=== PATIENT | female | born 1990 | race Caucasian/White ===

== ENCOUNTER 2020-10-09 12:26 | Emergency (ER) | payer OTHER, SELFPAY ==
--- NOTE | ~2020-10-09 | XR_ITS ---
EXAMINATION: CHEST WITH LEFT RIBS AND AP PELVIS WITH LEFT HIP. CLINICAL INFORMATION: Status post fall with left hip pain and bruising. Normal gait. COMPARISON: None TECHNIQUE: Chest and left RIBS 4 views. AP pelvis and 2 views left hip. FINDINGS: AP PELVIS: There is normal symmetry of bilateral hip joints and SI joints. No fracture or soft tissue involvement seen. LEFT HIP: There is no visible acute fracture, dislocation or subluxation seen. There is no bony erosive changes. The soft tissues are normal. CHEST: The lungs are well-expanded and clear. The heart size and pulmonary vascularity is normal. Multiple views left RIBS reveal no visible rib fracture or bony abnormality. The soft tissues are normal. XR/XR ribs LT min 3V w CXR1V IMPRESSION: Unremarkable on AP pelvis and left hips. Unremarkable chest and left rib exam.
--- NOTE | ~2020-10-09 | XR_ITS ---
EXAMINATION: CHEST WITH LEFT RIBS AND AP PELVIS WITH LEFT HIP. CLINICAL INFORMATION: Status post fall with left hip pain and bruising. Normal gait. COMPARISON: None TECHNIQUE: Chest and left RIBS 4 views. AP pelvis and 2 views left hip. FINDINGS: AP PELVIS: There is normal symmetry of bilateral hip joints and SI joints. No fracture or soft tissue involvement seen. LEFT HIP: There is no visible acute fracture, dislocation or subluxation seen. There is no bony erosive changes. The soft tissues are normal. CHEST: The lungs are well-expanded and clear. The heart size and pulmonary vascularity is normal. Multiple views left RIBS reveal no visible rib fracture or bony abnormality. The soft tissues are normal. XR/XR hip LT w PEL1V IMPRESSION: Unremarkable on AP pelvis and left hips. Unremarkable chest and left rib exam.
[2020-10-09 12:30] VITALS: BP 115/67; PULSE 66; RESP 16; TEMP 36.9; O2SAT 99; BMI 25.9
[2020-10-09 12:46] VITALS: BP 115/67; PULSE 66; RESP 16; TEMP 36.9; O2SAT 99
--- NOTE | 2020-10-09 12:48 | PC.NURSE ---
pt states she was drinking alcohol last night, states she drank a lot. she reports left rib pain, states she does not know if she fell. She reports bruise to hip. pain is to left lateral ribs. no bruising noted
--- NOTE | 2020-10-09 13:04 | ED_ITS ---
HPI - Fall General Chief Complaint: Chest Pain Stated Complaint: rib pain Time Seen by Provider: 10/09/20 12:45 Source: patient Mode of arrival: ambulatory Limitations: no limitations History of Present Illness HPI Narrative: 30-year-old female presenting to the ED with complaints of left lower rib cage pain and left hip pain after she fell while drinking last night. She reports she has pain with inspiration. denies head injury or loss of consciousness. She denies any other injury complaints or concerns at this time. complaint: fall Onset (ago): day(s) (Last night) Fall from: standing Place fall occurred: street Loss of consciousness: none Prolonged down time: no Symptoms prior to fall: none Context: tripped/slipped Location of injury: chest Location of injury - extremities: left: lower leg (Hip) Severity: mild Quality: aching Associated symptoms (after fall): other (Only pain to left lower chest wall and left hip no other symptoms after the fall) Related Data Previous Rx's Medication Instructions Recorded cyclobenzaprine 10 mg tablet 10 mg PO Q8H #10 tab 10/09/20 ibuprofen 800 mg tablet 800 mg PO Q8H PRN #14 tab 10/09/20 Allergies Allergy/AdvReac Type Severity Reaction Status Date / Time No Known Allergies Allergy Verified 10/09/20 12:34 Review of Systems Review of Systems: Constitutional : No changes in activity, No lethargy, No recent prior head injury, No agitation, No increased fussiness ENT/Mouth : No Ear Pain, No Nasal discharge/drainage Eyes: No Eye Pain, No Swelling, No Redness, No Foreign Body, No Vision Changes Cardiovascular : No Chest Pain, No SOB Respiratory : No Cough Gastrointestinal : No Nausea, No Vomiting, No abdominal Pain Genitourinary : No Dysuria, No Urinary Frequency, No Urinary Incontinence, No Urgency, No Flank Pain Musculoskeletal : Positive left hip joint pain, positive chest wall/rib cage pain the left lower aspect, No neck stiffness, No back pain/injury Skin : No lacerations Neuro : No unsteady gait, No Paresthesias, No Loss of Consciousness, No altered mental status, No Headache Yes all other systems are reviewed and are negative PMFSH Past Medical History Attestation statement: The following information was validated with the patient. Social History Social History Alcohol intake: current Alcohol intake frequency: other Patient Tobacco Use Status: Current someday Tobacco user Use of substances other than those prescribed or required for medical reasons: Refusing to respond Advance Directives: No Advance Directives Information Provided: Yes Physical Exam Vital Signs: Vital Signs: Last Vital Signs Temp 98.4 F 10/09/20 12:46 Pulse 66 10/09/20 12:46 Resp 16 10/09/20 12:46 BP 115/67 10/09/20 12:46 Pulse Ox 99 10/09/20 12:46 Body Mass Index 25.9 vital signs have been reviewed as normal and appeared to be correct. Blood pressure normal. Heart rate normal. Respiration rate normal. Temperature n ormal. Oxygen saturation normal. Appearance: Alert. Oriented X3. No acute distress. Head: Normal external exam. Normocephalic. Atraumatic. No Bueno signs noted. No raccoon eyes noted Eyes: PERRLA. EOMI. Conjunctiva and sclera normal. Eyelids normal. ENT: Pharynx normal. Uvula midline. Moist mucous membranes. Neck: Normal inspection. Neck supple. FROM. No adenopathy. No meningeal signs. Nontender. No signs of trauma. CVS: Normal heart rate and rhythm. Heart sound normal. Pulses normal throughout. No murmurs/rales/gallops. Respiratory: No respiratory distress. Painless inspiration. Breath sounds normal. No wheezes/rales/rhonchi noted. Chest tenderness palpation to left lower anterior chest wall/rib cage. Not consistent with flail chest. No ecchymosis /abrasion/laceration/fluctuance/induration or signs of infection noted. No accessory muscle usage noted or decreased air movement noted. Abdomen: Soft and nontender. Bowel sounds normal in all 4 quadrants. No distention noted. No organomegaly noted. No visible injury noted. No ecchymosis noted on the abdomen. Back: Full range of motion noted. Nontender. No signs of trauma. rashes/lesion/induration/fluctuance or signs of infection noted. Skin: Skin warm and dry. Normal skin color. Normal skin turgor. No rashes/lesions/lacerations noted. Extremities: Patient with tenderness palpation to left hip joint at the anterior aspect with ecchymosis noted. No ligamentous laxity noted. Patient has full range of motion of the hips and lower extremities. Otherwise all other Extremities exhibit normal range of motion and nontender. Neuro: Oriented X 3. No motor deficit. No sensory deficit. Reflexes normal. Normal steady gait. No focal neuro deficits noted. Vascular: + radial pulses/+ 2 distal pedal pulses/+2 dorsalis pedis b/l. Normal cap refill. No cyanosis noted to upper extremity nails and lower extremity toes nails. Course Course Course Narrative: 1pm - 30-year-old female presenting to the ED with complaints of left anterior chest wall/rib cage pain and left hip pain after she was out drinking and had a mechanical fall. Denies head injury or loss of consciousness. Not on any blood thinners. Denies any other injury complaints or concerns at this time. Plan: EKG was done out in triage. Ribs and left hip x-ray then re-evaluate. Reevaluation(s) Reevaluation #1: - x-rays negative for any acute processes such as fractures or any other acute processes. Therefore patient most likely muscle strain will DC home with muscle relaxants and symptomatic treatment instructions return if any new or worsening symptoms to follow up with primary care provider. Patient understands agrees with this plan. Time: 14:22 MDM - Fall Medical Records Attestation: I reviewed the patient's medical records. Imaging Data Rib/PA of left side and left hip x-ray: Attestation: I personally reviewed and interpreted this imaging study as follows: Radiologist's impression: FINDINGS: AP PELVIS: There is normal symmetry of bilateral hip joints and SI joints. No fracture or soft tissue involvement seen. LEFT HIP: There is no visible acute fracture, dislocation or subluxation seen. There is no bony erosive changes. The soft tissues are normal. CHEST: The lungs are well-expanded and clear. The heart size and pulmonary vascularity is normal. Multiple views left RIBS reveal no visible rib fracture or bony abnormality. The soft tissues are normal. XR/XR ribs LT min 3V w CXR1V IMPRESSION: Unremarkable on AP pelvis and left hips. ? Unremarkable chest and left rib exam.? Discharge Plan Discharge Clinical Impression: Fall, Chest wall muscle strain, Strain of left hip, Traumatic ecchymosis of left hip Patient Disposition: Home, Self-Care Instructions: Muscle Strain (ED), Hip Contusion (ED) Prescriptions: New cyclobenzaprine 10 mg tablet 10 mg PO Q8H Qty: 10 RF: 0 ibuprofen 800 mg tablet 800 mg PO Q8H PRN (Reason: pain) Qty: 14 RF: 0 Referrals: Physician,Unknown [Primary Care Provider] - 2 days (your pcp) Print Language: Moroccan
[2020-10-09 14:35] VITALS: BP 121/86; PULSE 68; RESP 16; O2SAT 98
== END 2020-10-09 14:37 | disposition home or self-care (01) ==
PROVIDERS: Emergency Provider Internal Medicine
DX: S29.011A Strain of muscle and tendon of front wall of thorax, initial encounter (principal); S76.012A Strain of muscle, fascia and tendon of left hip, initial encounter; S70.02XA Contusion of left hip, initial encounter; W01.0XXA Fall on same level from slipping, tripping and stumbling without subsequent striking against object, initial encounter; Y93.01 Activity, walking, marching and hiking; Y92.410 Unspecified street and highway as the place of occurrence of the external cause; Y99.9 Unspecified external cause status
CPT/HCPCS: 71101; 73502; 99283; 99284

== ENCOUNTER 2021-05-27 22:21 | Emergency (ER) | payer OTHER, SELFPAY ==
[2021-05-27 22:57] VITALS: BP 121/65; PULSE 60; RESP 19; TEMP 36.1; O2SAT 98; BMI 21.2
[2021-05-27] MEDS: Ondansetron ODT 4 MG TAB.RAPDIS SUBLINGUAL (23:03)
[2021-05-27 23:17] LABS: Appearance Urine HAZY; Color Urine BROWN; Glucose Urine UA NEG (NEG); Leukocyte Esterase Urine NEG (NEG); Nitrite Urine NEG (NEG); PH 6.5 (5.0-8.0); Specific Gravity - Urine 1.025 (1.005-1.025); UACC Culture Trigger NO; Urine Blood 3+ (NEG); Urine Ketones NEG (NEG); Urine Protein TRACE MG/DL (NEG-TRACE)
[2021-05-27 23:19] LABS: UPreg QC Valid YES; Urine Pregnancy NEGATIVE (NEGATIVE)
[2021-05-27 23:30] LABS: WBC Urine 0 /HPF (0-4)
--- NOTE | 2021-05-27 23:43 | PC.NURSE ---
patient reports nausea mildly improved at this time after zofran admin. pain still present
[2021-05-27 23:51] LABS: Basophils Absolute Auto 0.1 X10*3/uL (0.0-0.2); Basophils Percent Auto 0.4 % (0-2); Eosinophils Absolute Auto 0.1 X10*3/uL (0.0-0.4); Eosinophils Percent Auto 0.3 % (0-4); Hematocrit 43.3 % (37.0-47.0); Hemoglobin 14.2 g/dl (12.0-16.0); Imm Gran Abs Auto 0.08 X10*3/uL (0.00-0.03); Imm Gran Pct Auto 0.5 % (0.0-0.4); Lymphocytes Absolute Auto 2.6 X10*3/uL (1.2-4.9); Lymphocytes Percent Auto 15.3 % (20-40); MANUAL DIFF FLAG NO; Mean Corpuscular HGB Conc 32.8 g/dl (31.0-35.0); Mean Corpuscular Hemoglobin 27.8 pg (27.0-33.0); Mean Corpuscular Volume 84.7 fL (80.0-98.0); Mean Platelet Volume 10.4 fL (9.4-12.3); Monocytes Absolute Auto 1.1 X10*3/uL (0.1-1.2); Monocytes Percent Auto 6.3 % (2-11); Neutrophils Absolute Auto 13.2 x10*3/uL (2.0-8.3); Neutrophils Percent Auto 77.2 % (45-73); Platelet Count 266 X10*3/uL (160-400); Red Blood Count 5.11 X10*6/uL (4.20-5.50); Red Cell Distribution Width 12.6 % (11.0-16.0); White Blood Count 17.1 X10*3/uL (4.8-10.8)
[2021-05-28 00:07] LABS: Alanine Aminotransferase 14 U/L (0-31); Albumin Level 4.6 g/dL (3.5-5.0); Alkaline Phosphatase 62 U/L (39-117); Anion Gap 16 (12-20); Aspartate Amino Transferase 20 U/L (5-31); Bilirubin Direct < 0.2 mg/dL (0.0-0.5); Bilirubin Total 0.3 mg/dL (0.0-1.0); Blood Urea Nitrogen 15 mg/dL (9-16); Calcium 9.3 mg/dL (8.4-10.2); Carbon Dioxide 18 mmol/L (22-29); Chloride 108 mmol/L (96-108); Creatinine Clr Calc Pharmacy 80.2; Estimated Glomerular Filt Rate > 60; Glucose Random 145 mg/dL (60-115); Lipase 8 U/L (8-78); Potassium 3.5 mmol/L (3.3-5.1); Sodium 138 mmol/L (135-145); Total Protein 7.5 g/dL (6.5-8.0)
== END 2021-05-28 00:30 | disposition left against medical advice (07) ==
PROVIDERS: Emergency Provider Emergency Medicine
DX: R11.2 Nausea with vomiting, unspecified (principal); R10.9 Unspecified abdominal pain
CPT/HCPCS: 36415; 80048; 80076; 81001; 81025; 83690; 85025; 99283